=== PATIENT | female | born 1985 | race American Indian/Alaskan Native ===

== ENCOUNTER 2021-11-22 19:20 | Emergency (ER) | payer SELFPAY ==
[2021-11-22 20:45] VITALS: BP 118/70
[2021-11-22] MEDS ORDERED: diazePAM 5 MG TAB PO ONE (22:45)
[2021-11-22] MEDS ORDERED: KETOROLAC 30 MG/1 ML INJ IM ONE (22:45)
[2021-11-22] MEDS ORDERED: dexAMETHasone 20 MG/5 ML VIAL IM ONE (22:45)
--- NOTE | 2021-11-22 23:51 | Emergency Department Report ---
ED Extremity Problem HPI - General Chief complaint: Extremity Injury, Upper Stated complaint: HAVING PAINS IN RT ARM Source: patient Mode of arrival: Ambulatory Limitations: No Limitations - History of Present Illness Initial comments: Patient is a 36-year-old -[place] female with no past medical history presented to the ED with complaint of acute onset persistent right shoulder pain that radiates to the right hand and right forearm for the last 1 week. Patient states that the pain is especially worse at rest or at night when she lays down to sleep. 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 Patient denies chest pain, shortness of breath, neck pain, change in vision, headache, traumatic injury or heavy lifting, fever, chills, cough, back pain or numbness and weakness of right arm. MD Complaint: extremity pain (right shoulder and arm pain) -: Sudden, week(s) (1) Location: right, upper extremity (shoulder) History of Same: No -: Yes arthralgia, No fever, No associated dyspnea, No associated chest pain Radiation: distal Severity scale (0 -10): 7 Quality: aching, sharp Consistency: constant Improves with: nothing Worsens with: weight bearing, exertion, palpation Associated Symptoms: denies other symptoms, arthralgias. denies: chest pain, shortness of breath, fever, myalgias, rash - Related Data Previous Rx's Medication Instructions Recorded Last Taken Type oxyCODONE /ACETAMINOPHEN [Percocet 1 tab PO Q6HR PRN #15 tablet 01/15/15 Unknown Rx 5/325 mg] Baclofen 20 mg PO Q12H PRN #20 tab 11/22/21 Unknown Rx Gabapentin 300 mg PO Q12H #20 cap 11/22/21 Unknown Rx Naproxen Sodium [Naproxen Sodium 550 mg PO Q12H PRN #30 tab 11/22/21 Unknown Rx 550mg] predniSONE [Deltasone] 40 mg PO QDAY #10 tab 11/22/21 Unknown Rx Allergies Allergy/AdvReac Type Severity Reaction Status Date / Time STRAWBERRIES Allergy Hives, Uncoded 01/05/15 11:01 itching ED Review of Systems ROS: Stated complaint: HAVING PAINS IN RT ARM Other details as noted in HPI Constitutional: denies: chills, fever Eyes: denies: eye pain, eye discharge, vision change ENT: denies: ear pain, throat pain Respiratory: denies: cough, shortness of breath, wheezing Cardiovascular: denies: chest pain, palpitations Endocrine: no symptoms reported Gastrointestinal: denies: abdominal pain, nausea, diarrhea Genitourinary: denies: urgency, dysuria, discharge Musculoskeletal: arthralgia (Right shoulder and distal right arm pain). denies: back pain, joint swelling Skin: denies: rash, lesions Neurological: denies: headache, weakness, paresthesias Psychiatric: denies: anxiety, depression Hematological/Lymphatic: denies: easy bleeding, easy bruising ED Past Medical Hx - Past Medical History Previous Medical History?: No Hx Hypertension: No Hx Heart Attack/AMI: No Hx Congestive Heart Failure: No Hx Diabetes: No Hx Deep Vein Thrombosis: No Hx Liver Disease: No Hx Renal Disease: No Hx Sickle Cell Disease: No Hx Seizures: No Hx Asthma: No Hx COPD: No Hx HIV: No - Surgical History Past Surgical History?: No Hx Pacemaker: No Hx Internal Defibrillator: No - Social History Smoking Status: Never Smoker - Medications Home Medications: Home Medications Medication Instructions Recorded Confirmed Last Taken Type oxyCODONE /ACETAMINOPHEN [Percocet 1 tab PO Q6HR PRN #15 tablet 01/15/15 Unknown Rx 5/325 mg] Baclofen 20 mg PO Q12H PRN #20 tab 11/22/21 Unknown Rx Gabapentin 300 mg PO Q12H #20 cap 11/22/21 Unknown Rx Naproxen Sodium [Naproxen Sodium 550 mg PO Q12H PRN #30 tab 11/22/21 Unknown Rx 550mg] predniSONE [Deltasone] 40 mg PO QDAY #10 tab 11/22/21 Unknown Rx ED Physical Exam - General Limitations: No Limitations General appearance: alert, in no apparent distress - Head Head exam: Present: atraumatic, normocephalic, normal inspection - Eye Eye exam: Present: normal appearance, PERRL, EOMI Pupils: Present: normal accommodation - ENT ENT exam: Present: normal exam, normal orophraynx, mucous membranes moist, TM's normal bilaterally, normal external ear exam - Neck Neck exam: Present: normal inspection, full ROM. Absent: tenderness - Respiratory Respiratory exam: Present: normal lung sounds bilaterally. Absent: respiratory distress, wheezes, rales, rhonchi, stridor, chest wall tenderness, accessory muscle use, prolonged expiratory - Cardiovascular Cardiovascular Exam: Present: regular rate, normal rhythm, normal heart sounds. Absent: systolic murmur, diastolic murmur, rubs, gallop - GI/Abdominal GI/Abdominal exam: Present: soft, normal bowel sounds. Absent: distended, tenderness, guarding, rebound, hyperactive bowel sounds, hypoactive bowel soun ds, organomegaly, mass - Extremities Exam Extremities exam: Present: normal inspection, full ROM, tenderness (Palpable right shoulder tenderness), normal capillary refill. Absent: pedal edema, joint swelling, calf tenderness - Back Exam Back exam: Present: normal inspection, full ROM. Absent: tenderness, CVA tenderness (R), CVA tenderness (L), muscle spasm, paraspinal tenderness, vertebral tenderness - Neurological Exam Neurological exam: Present: alert, oriented X3, CN II-XII intact, normal gait, reflexes normal - Psychiatric Psychiatric exam: Present: normal affect, normal mood - Skin Skin exam: Present: warm, dry, intact, normal color. Absent: rash ED Course Vital Signs 11/22/21 11/22/21 20:41 23:00 Temperature 97.8 F Pulse Rate 74 Respiratory 18 16 Rate Blood Pressure 118/70 O2 Sat by Pulse 100 Oximetry ED Medical Decision Making - Medical Decision Making This is a 36-year-old -[place] female with no past medical history presented to the ED with complaint of acute onset persistent right shoulder pain that radiates to the right hand and right forearm for the last 1 week. Patient states that the pain is especially worse at rest or at night when she lays down to sleep. 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 In the ED, patient is alert and oriented x3 and is not in any distress. Patient was treated for pain in the ED and discharged home on pain medications and muscle relaxants based on the history and physical exam findings. Patient was advised to follow- up with her primary care physician in 7 to 10 days for reevaluation or return to the ED immediately if symptoms get worse. - Differential Diagnosis Muscle strain; muscle spasm; cervical radiculopathy; bursitis; tendinitis Critical care attestation.: If time is entered above; I have spent that time in minutes in the direct care of this critically ill patient, excluding procedure time. ED Disposition Clinical Impression: Bursitis of right shoulder, Right shoulder tendonitis, Cervical radiculopathy Muscle strain of right shoulder Qualifiers: Encounter type: initial encounter Qualified Code(s): S46.911A - Strain of unspecified muscle, fascia and tendon at shoulder and upper arm level, right arm, initial encounter Disposition: HOME / SELF CARE / HOMELESS Is pt being admited?: No Does the pt Need Aspirin: No Condition: Stable Instructions: Muscle Strain, [id number], Bursitis, [id number], Cervical Radiculopathy, [id number], Tendinitis, [id number] Additional Instructions: Your symptoms are likely musculoskeletal muscle strain versus muscle spasm versus tendinitis or bursitis of the right shoulder. Therefore take medication with food, drink plenty of fluids and follow-up with your primary care physician in 7 to 10 days for reevaluation. Return to the ED immediately if symptoms get worse. Prescriptions: Baclofen 20 mg PO Q12H PRN #20 tab PRN Reason: Muscle Spasm predniSONE [Deltasone] 40 mg PO QDAY #10 tab Gabapentin 300 mg PO Q12H #20 cap Naproxen Sodium [Naproxen Sodium 550mg] 550 mg PO Q12H PRN #30 tab PRN Reason: Pain , Severe (7-10) Referrals: [facility] [Provider Group] - 7-10 days Time of Disposition: 23:48 Print Language: BULGARIAN
== END 2021-11-23 00:50 | disposition home or self-care (01) ==
LOC: ED 19:20
DX: S46.911A Strain of unspecified muscle, fascia and tendon at shoulder and upper arm level, right arm, initial encounter (principal); M75.51 Bursitis of right shoulder; M54.12 Radiculopathy, cervical region; X58.XXXA Exposure to other specified factors, initial encounter; Y93.89 Activity, other specified; Y92.89 Other specified places as the place of occurrence of the external cause; Y99.8 Other external cause status
CPT/HCPCS: 96372; 99282; J1100; J1885